=== PATIENT | male | born 2000 | race Caucasian/White ===

== ENCOUNTER 2019-02-21 03:29 | Observation (INO) ==
--- NOTE | 2019-02-21 03:43 | PROVIDER DOCUMENTATION ---
[id number] Abuse/Overdose - General Chief Complaint: Overdose Stated Complaint: OVERDOSE Time Seen by Provider: 02/21/19 03:42 Source: patient Allergies/Adverse Reactions: Allergies Allergy/AdvReac Type Severity Reaction Status Date / Time Penicillins AdvReac RASH Verified 02/21/19 03:40 Home Medications: Home Medication List Medication Instructions Recorded Confirmed Last Taken Type No Home Medications 05/02/15 02/21/19 Unknown History - History of Present Illness-Drug/Alcohol Nature of Presenting Problem: Patient is a 18 year old white male with history of substance abuse who arrives intoxicated by private car. Patient admits to drinking large amounts of alcohol tonight. Review of Systems - Adult - REVIEW OF SYSTEMS - ADULT Constitutional: denies: chills, fever Eyes: reports: no symptoms reported Ears, Nose, Mouth & Throat: reports: no symptoms reported Cardiovascular: reports: no symptoms reported Respiratory: reports: no symptoms reported Gastrointestinal: reports: see HPI Genitourinary: reports: no symptoms reported Musculoskeletal: reports: no symptoms reported Integumentary: reports: no symptoms reported Neurological: reports: see HPI Psychiatric: reports: see HPI, anxiety, alcohol/drug dependence Endocrine: reports: no symptoms reported Hematologic/Lymphatic: reports: no symptoms reported Allergic/Immunologic: reports: no symptoms reported All Other Systems: Reviewed and Negative Past History - Adult - PAST MEDICAL HISTORY-ADULT Review of Records: reports: Old Records Reviewed, Nursing Assessment Review, Medications Reviewed, Social history reviewed & non-contributory. Major Childhood Illnesses: reports: denies history Cardiovascular: reports: denies history Respiratory: reports: denies history Gastrointestinal: reports: other (stomach problems) Musculoskeletal: reports: denies history Psychiatric: reports: other (ADHD) Endocrine/Immune: reports: denies history - PRIOR SURGERIES/PROCEDURES Surgical/Procedure History: reports: none - IMMUNIZATION STATUS Childhood Immunizations: See Nurse Assessment Flu Vaccine: See Nurse Assessment - SOCIAL HISTORY Substance Use: alcohol Physical Exam-General - PHYSICAL EXAM-ADULT Initial Vital Signs Reviewed: Yes - CONSTITUTIONAL General Appearance: other (drowsy, answers questions appropriately, slurred speech) - EYES Eyes: PERRL/EOMI - HEAD, EARS, NOSE, MOUTH & THROAT HENMT: normocephalic/atraumatic, moist mucous membranes - NECK Neck: non-tender, full range of motion - RESPIRATORY Respiratory: lungs clear - CARDIOVASCULAR Cardiovascular: regular rate, rhythm - GASTROINTESTINAL (ABDOMEN) Abdominal Exam: normal bowel sounds, non tender, soft - LYMPHATIC Lymphatic: no adenopathy - MUSCULOSKELETAL Back Exam: normal inspection, no CVA tenderness Extremity: normal range of motion, non-tender - SKIN Integumentary: normal color, normal turgor - NEUROLOGIC Neurologic: grossly normal Progress - PLAN OF CARE/RESULTS Result Diagrams: 02/21/19 04:10 02/21/19 04:10 - REASSESSMENT Reassessment #1 Time Reassessed: 05:10 Status: worsening Reassessment Comment: becoming more somnolent, narcan bolus and narcan drip ordered - EKG 1 Time of EKG reading by physician:: 05:08 EKG Read and Signed by:: Mikhail Roth Rate: 52 Rhythm: sinus jennifer QRS: normal Comments: no STEMI - XRAY 1 XRAY Study: Chest XRAY Interpretation: NAD - CT/MRI 1 CT Study: Head CT Results: NAD - CONSULTS/PCP/HOSPITALIST Notification #1 *Consult/PCP/Hospitalist*: Dr. Tian, hospitalist Time Discussed: 05:00 Reason/Comments: call house sup to admit to ICU at [facility] Consult Disposition: Admit - CHANGE OF SHIFT REPORT (ED Provider) 1 Report Given and Care Transferred to:: Dr. Velásquez Time of Transfer: 07:00 Items Pending: Physician Consult/Arrival (arrange for transfer to [facility] ICU and manage overdose while awaiting transfer) Departure - Departure Date of Disposition Decision: 02/21/19 Time of Disposition Decision: 12:17 DIAGNOSIS: Opiate overdose Qualifiers: Encounter type: initial encounter Injury intent: undetermined intent Qualified Code(s): T40.604A - Poisoning by unspecified narcotics, undetermined, initial encounter Benzodiazepine overdose Qualifiers: Encounter type: initial encounter Injury intent: undetermined intent Qualified Code(s): T42.4X4A - Poisoning by benzodiazepines, undetermined, initial encounter Leukocytosis Qualifiers: Leukocytosis type: unspecified Qualified Code(s): D72.829 - Elevated white blood cell count, unspecified Disposition: ADMITTED INPATIENT 09 Certified Medical Emergency: Emergent Condition: Stable - Critical Care Note This patient required my direct & personal management of CC.: No Attestation - Physician/ LAUREEN Attestation Patient care was provided by Advanced Practice Provider:: No The physician spent face to face time with patient:: Yes Advanced Practice Provider documentation review:: Supervising physician onsite and consulted in the evaluation and care of this patient. The physician did have a face to face encounter with the patient.
[2019-02-21 04:20] LABS: BASO# 0.02 X1000 (0.0-0.2); BASO% 0.1 % (0.0-0.8); EOS# 0.02 X1000 (0.0-0.7); EOS% 0.1 % (0.0-10.0); HEMATOCRIT 45.4 % (42.0-52.0); HEMOGLOBIN 15.9 g/dL (14.0-18.0); IMM GRAN# 0.04 X1000 (0.0-0.04); IMM GRAN% 0.2 % (0.0-0.5); LYMPH# 2.72 X1000 (1.2-3.4); LYMPH% 16.5 % (20.5-51.1); MCH 28.9 PG (27-31); MCV 82.5 FL (81-99); MONO# 0.63 X1000 (0.11-0.59); MONO% 3.8 % (1.7-9.3); MPV 10.1 FL (7.4-10.4); NEUT% 79.3 % (42.2-75.2); PLT 239 X1000 (130-400); RDW 12.6 % (11.5-14.5); WBC 16.53 X1000 (4.8-10.8)
[2019-02-21] MEDS ORDERED: NS 1,000 ML IV ONE ×3 (04:22→06:27)
[2019-02-21 04:27] LABS: URINE SOURCE CLEAN CATCH
[2019-02-21 04:38] LABS: BILIRUBIN URINE NEGATIVE (NEGATIVE); BLOOD URINE NEGATIVE (NEGATIVE); COLOR YELLOW; GLUCOSE URINE NEGATIVE (NEGATIVE); KETONE URINE NEGATIVE (NEGATIVE); LEUKOCYTES URINE NEGATIVE (NEGATIVE); NITRITE URINE NEGATIVE (NEGATIVE); PROTEIN URINE 30 mg/dL (NEGATIVE); TURBIDITY URINE CLEAR (CLEAR); UROBILINOGEN URINE NORMAL (NORMAL)
[2019-02-21 04:39] LABS: UR EPITHELIAL CELLS <10 /HPF (<10); URINE BACTERIA NEGATIVE /HPF; URINE RBC <10 /HPF (<10); URINE WBC <10 /HPF (<10)
[2019-02-21 04:39] LABS: ACETAMINOPHEN < 1.2 ug/mL (10-30); AGAP 13; ALKALINE PHOSPHATASE 70 U/L (32-122); BUN 11 mg/dL (8-22); CALCIUM 9.5 mg/dL (8.8-10.2); CHLORIDE 102 mmol/L (98-107); COSMO 281; CREATININE 0.9 mg/dL (0.7-1.2); ESTIMATED GFR > 60; GLUCOSE 137 mg/dL (70-104); GOT 13 U/L (10-34); GPT 11 U/L (10-44); POTASSIUM 3.9 mmol/L (3.5-5.1); SALICYLATES < 3.00 mg/dL (3-10); SODIUM 140 mmol/L (136-145); TCO2 25 mmol/L (25-35); TOTAL PROTEIN 7.3 g/dL (6.3-8.3)
[2019-02-21 04:46] LABS: UR AMPHETAMINES QUAL NONE DETECTED (NONE DETECT); UR BARBITUATES QUAL NONE DETECTED (NONE DETECT); UR BENZODIAZEPIN QUAL PRESUMPTIVE POSITIVE (NONE DETECT); UR CANNABINOIDS QUAL PRESUMPTIVE POSITIVE (NONE DETECT); UR COCAINE QUAL NONE DETECTED (NONE DETECT); UR METHADONE QUAL NONE DETECTED (NONE DETECT); UR METHAMPHETAMINE QUAL NONE DETECTED (NONE DETECT); UR OPIATES QUAL PRESUMPTIVE POSITIVE (NONE DETECT); UR OXYCODONE QUAL NONE DETECTED (NONE DETECT); UR PCP QUAL NONE DETECTED (NONE DETECT); UR PROPOXYPHENE QUAL NONE DETECTED (NONE DETECT); UR TCA QUAL NONE DETECTED (NONE DETECT)
[2019-02-21] MEDS ORDERED: NARCAN IV ONE ×3 (05:09→06:56)
[2019-02-21] MEDS ORDERED: NARCAN 4 MG in NS 250 ML IV SCH ×2 (05:15→15:00)
[2019-02-21] MEDS ORDERED: NS 250 ML ONE (05:24)
[2019-02-21] MEDS ORDERED: NARCAN ONE (05:24)
[2019-02-21] MEDS ORDERED: ROCEPHIN 1 GM in NS 50 ML IV ONE (06:11)
[2019-02-21] MEDS ORDERED: NS 1,000 ML ONE (06:12)
[2019-02-21 06:19] LABS: URINE SOURCE CATH
--- NOTE | 2019-02-21 06:20 | EKG Report ---
Test Performed on : 02/21/2019 05:07:59 AM Test Reason : pain Blood Pressure : / mmHG Vent. Rate : 052 BPM Atrial Rate : 052 BPM P-R Int : 134 ms QRS Dur : 116 ms QT Int : 434 ms P-R-T Axes : 067 077 080 degrees QTc Int : 403 ms Sinus bradycardia. Otherwise normal ECG No previous ECGs available Unconfirmed Result
--- NOTE | 2019-02-21 06:53 | Diag Imaging Result Doc PS360 ---
EXAM: CHEST-PORTABLE 02/21/2019 HISTORY: leukocytosis TECHNIQUE: AP portable at 0552 COMMENT: The lungs are clear and the heart and pulmonary vascularity are within normal limits. The inspiration is less optimal than on 06/14/2015, however otherwise are has been no significant change. IMPRESSION: No acute disease. Electronically signed by Sonido Amaya 02/21/2019 6:50 AM
--- NOTE | 2019-02-21 07:04 | Diag Imaging Result Doc PS360 ---
EXAM: CT HEAD W/O CONTRAST 02/21/2019 HISTORY: altered mentation TECHNIQUE: This exam was performed using automated exposure control, adjustment of mA or kV according to patient size, and/or use of iterative reconstruction technique. COMMENT: There is no evidence of mass effect, bleed, or abnormal extra-axial fluid collection. Compared to 05/03/2015 there has been no significant change in the appearance of the brain. The calvarium is intact. There is a mucous retention cyst in the right maxillary sinus and opacification of the posterior ethmoid air cell on the right otherwise the visualized paranasal sinuses are clear. IMPRESSION: No evidence of acute intracranial disease. Electronically signed by Sonido Amaya 02/21/2019 7:02 AM
[2019-02-21 07:09] LABS: UR EPITHELIAL CELLS <10 /HPF (<10); URINE BACTERIA NEGATIVE /HPF; URINE RBC <10 /HPF (<10); URINE WBC <10 /HPF (<10)
[2019-02-21 07:12] LABS: BILIRUBIN URINE NEGATIVE (NEGATIVE); BLOOD URINE NEGATIVE (NEGATIVE); COLOR YELLOW; GLUCOSE URINE NEGATIVE (NEGATIVE); KETONE URINE NEGATIVE (NEGATIVE); LEUKOCYTES URINE NEGATIVE (NEGATIVE); NITRITE URINE NEGATIVE (NEGATIVE); PROTEIN URINE TRACE mg/dL (NEGATIVE); SP GRAVITY URINE 1.024; TURBIDITY URINE TURBID (CLEAR); UROBILINOGEN URINE NORMAL (NORMAL)
[2019-02-21 07:55] LABS: ACETAMINOPHEN < 1.2 ug/mL (10-30); SALICYLATES < 3.00 mg/dL (3-10)
[2019-02-21 07:57] LABS: BE -3.1 mmoll (-3.0-3.0); BLOOD TYPE ARTERIAL; HCO3-(ACT) 22.5 mmoll (20.0-26.0); METHB 1.7 % (0.0-1.5); O2(CT) 11.4 mL/dL (15.0-23.0); O2HB 92.6 % (95.0-99.0); PCO2(98.6) 43 mmHg (35-45); PO2(98.6) 92 mmHg (60-100); SAMPLE BLOOD; SAO2 100.8 % (95.0-100.0); THB 8.6 g/dL (11.5-17.4); pH(98.6) 7.33 (7.35-7.45)
[2019-02-21 08:00] LABS: ALLEN TEST YES; MODALITY ROOM AIR
[2019-02-21 08:01] LABS: INR 0.94
[2019-02-21 08:02] LABS: PTT 28.6 Seconds (22.3-41.8)
--- NOTE | 2019-02-21 08:12 | Diag Imaging Result Doc PS360 ---
EXAM: KUB ABDOMEN 02/21/2019 HISTORY: possible ingestion of drugs in baggie scrap stripper hand TECHNIQUE: KUB COMMENT: The bowel gas pattern is nonspecific. There are no definite foreign bodies demonstrated. There is no evidence of organomegaly or mass. IMPRESSION: Nonspecific abdomen. Electronically signed by Sonido Amaya 02/21/2019 8:10 AM
--- NOTE | 2019-02-21 09:24 | HISTORY AND PHYSICAL ---
PRIMARY CARE PHYSICIAN: None. CHIEF COMPLAINT: Overdose after he was stopped by the police and swallowed an unknown amount of medications of an unknown type, and was brought to the emergency room by private car. HISTORY OF PRESENTING ILLNESS: This is a 18-year-old, male, who presents to [facility] ER via private car. He initially stated that he had been drinking large amounts of alcohol, but his serum alcohol level showed none detected. It is noted that apparently, he was pulled over with a friend by the police, and he swallowed an unknown amount of drugs that he had in the car. His urine drug screen was positive for opiates, benzodiazepines, and cannabinoids. He was noted to become very somnolent after arriving. His core temp dropped to 96.2 about an hour and a half after he left, when he was placed on a Annmarie Hugger. Currently, his temperature is up to 96.8. His chest x-ray showed no acute disease. Head CT showed no evidence of acute intracranial disease, and his abdomen x-ray showed a nonspecific abdomen. He was started on a Narcan drip, is still lying in the bed, snoring at this time, will arouse to sternal rub, but he will be admitted to the intensive care unit at the [facility] for further evaluation and treatment. PAST MEDICAL HISTORY: GERD. PAST SURGICAL HISTORY: None. FAMILY HISTORY: Reviewed and noncontributory. SOCIAL HISTORY: He lives with family. Smokes less than a half a pack of cigarettes a day, and has done so for the last several years. Drinks alcohol occasionally, and took an unknown amount of medications of illicit drugs. Again, we do not know exactly what all he has taken. When he first arrived to the emergency room, he stated that he had taken fentanyl, Xanax, Roxicodone, and smoked marijuana and had been drinking alcohol. ALLERGIES: Penicillin. HOME MEDICATIONS: He does not take any medications on a routine basis. IMAGING AND LABORATORY DATA: Laboratory data showed a white blood cell count of 16.53, hemoglobin 15.9, hematocrit 45.4, platelets 239,000. PT and INR of 13 and 0.94. ABG with a pH of 7.33, pCO2 of 43, PO2 of 92, bicarb 22.5, and this was on room air. Sodium 140, potassium 3.9, chloride 102, CO2 of 25, BUN of 11, creatinine 0.9, glucose 137. Magnesium of 2. Cardiac enzyme was negative. Plasma lactate of 0.9. Urinalysis was negative. Urine drug screen was presumptive positive for opiates, benzodiazepines, and cannabinoids. Serum alcohol level showed none detected. Salicylate level x2 sets was less than 3, and acetaminophen x2 sets was less than 1.2. Chest x-ray showed no acute disease. Head CT showed no evidence of acute intracranial disease. An abdomen x-ray showed a nonspecific abdomen. REVIEW OF SYSTEMS: Unable to obtain from patient. PHYSICAL EXAMINATION: VITAL SIGNS: On arrival, he had a temperature of 97.9 degrees, pulse 82, respirations 18, blood pressure 113/76, saturating 97% on room air. About an hour and a half after he arrived, his core temp dropped to 96.2. He was placed on the Annmarie Hugger, which he currently remains on, and his temperature is still 96.8 right now. HEENT: Normocephalic, atraumatic. Normal ENT inspection. Oropharynx and nares are clear. Eyes: Pupils appear equal, round, and reactive to light and accommodation. Extraocular movements are intact. NECK: Normal inspection. Normal range of motion. LUNGS: Clear to auscultation bilaterally with equal lung expansion and chest wall movement. HEART: Regular rate and rhythm. No murmurs, rubs, or gallops. ABDOMEN: Soft, nontender, nondistended. Bowel sounds are present x4 quadrants. MUSCULOSKELETAL: Unable to assess strength at this time. NEUROLOGICAL: Unable to complete neurological exam due to his lethargy, but appears to be intact. ASSESSMENT: 1. Drug overdose, unintentional for self-harm. 2. Leukocytosis, most likely reactive. 3. Gastroesophageal reflux disease. PLAN: He will be admitted to the intensive care unit at [facility]. He is n.p.o. at this time. Remains on the Annmarie Hugger. Neurologic checks every 1 hour. He is on a Narcan drip. Blood cultures x2 are pending. Will recheck a CBC and BMP in the a.m. Further orders after seen by attending. Dictated by CHRISTIANA Ayon for Rhett Sorensen MD cc: CHRISTIANA Ayon MD
--- NOTE | 2019-02-21 11:40 | EKG Report ---
Test Performed on : 02/21/2019 11:26:06 AM Test Reason : OD Blood Pressure : / mmHG Vent. Rate : 054 BPM Atrial Rate : 054 BPM P-R Int : 140 ms QRS Dur : 106 ms QT Int : 416 ms P-R-T Axes : 079 080 085 degrees QTc Int : 394 ms Sinus bradycardia. with sinus arrhythmia. Otherwise normal ECG When compared with ECG of 21-FEB-2019 05:07, (Unconfirmed) No significant change was found Unconfirmed Result
[2019-02-21 11:53] LABS: ACETAMINOPHEN < 1.2 ug/mL (10-30); SALICYLATES < 3.00 mg/dL (3-10)
--- NOTE | 2019-02-21 13:34 | HISTORY AND PHYSICAL ---
ADDENDUM: SUBJECTIVE: The patient has no major complaints but he is kind of minimally responsive. This is a 18-year-old. No medical problems. I guess polysubstance abuser. He had significant amount of drugs on board. Reportedly, opiates, benzodiazepines, cannabinoids, fentanyl patch. He was pulled over by the police and he apparently ingested the entire bag of drugs. We are not entirely sure how much he took. Patient was nearly obtunded. He was placed on Narcan. He is more arousable now. The only thing in his system was opiates, benzodiazepines, and cannabinoids. In any case, he was found okay. Looking here, fentanyl 12 bars, alcohol, marijuana, [place] 10, Roxicodone 30, and Xanax, but we do not know exactly an amount. He is going to be transferred to [facility] for ICU management, Narcan. He is a bit on the bradycardic side so we will continue to monitor that. He may need atropine and dopamine upon reassessment, so we will continue to follow. This is a 32 minute critical care time for drug overdose with narcotics, on intravenous naloxone infusion. Azsy-es-bagl encounter note with Maggie Malin. cc: Rhett Sorensen MD
[2019-02-21] MEDS ORDERED: ATROPINE IV PRN ×2 (13:46→16:04)
[2019-02-21] MEDS: SODIUM CHLORIDE 0.9% INJ SCH (14:40)
[2019-02-21] MEDS: NS 1,000 ML IV SCH ×2 (14:40→23:00)
[2019-02-21] MEDS: PROTONIX IV SCH (14:40)
[2019-02-21] MEDS: NICODERM PATCH TD SCH (15:59)
[2019-02-21] MEDS ORDERED: BLISTEX MEDICATED BERRY LIP BALM TOP PRN (19:43)
[2019-02-22] MEDS ORDERED: LOVENOX SUBQ SCH (06:00)
[2019-02-22 06:24] LABS: BASO# 0.01 X1000 (0.0-0.2); BASO% 0.1 % (0.0-0.8); EOS# 0.06 X1000 (0.0-0.7); EOS% 0.7 % (0.0-10.0); HEMATOCRIT 42.8 % (42.0-52.0); HEMOGLOBIN 14.9 g/dL (14.0-18.0); LYMPH# 3.22 X1000 (1.2-3.4); MCH 29.2 PG (27-31); MCHC 34.8 g/dL (33-37); MCV 83.8 FL (81-99); MONO# 0.58 X1000 (0.11-0.59); MONO% 6.8 % (1.7-9.3); MPV 10.5 FL (7.4-10.4); NEUT% 54.4 % (42.2-75.2); PLT 208 X1000 (130-400); RBC 5.11 XMIL (4.7-6.1); RDW 12.5 % (11.5-14.5); WBC 8.47 X1000 (4.8-10.8)
[2019-02-22 07:02] LABS: AGAP 11; ALB/GLOB RATIO 2.4; ALBUMIN 4.1 g/dL (3.5-5.0); ALKALINE PHOSPHATASE 59 U/L (32-122); BUN 6 mg/dL (8-22); CALCIUM 8.5 mg/dL (8.8-10.2); CHLORIDE 108 mmol/L (98-107); COSMO 279; DIRECT BILIRUBIN < 0.10 mg/dL (0.00-0.20); ESTIMATED GFR > 60; GLUCOSE 71 mg/dL (70-104); GOT 13 U/L (10-34); GPT 9 U/L (10-44); POTASSIUM 3.6 mmol/L (3.5-5.1); SODIUM 142 mmol/L (136-145); TCO2 23 mmol/L (25-35); TOTAL BILIRUBIN 0.69 mg/dL (0.20-1.00); TOTAL PROTEIN 5.8 g/dL (6.3-8.3)
[2019-02-22] MEDS: NICODERM PATCH TD SCH (08:29)
[2019-02-22] MEDS: NS 1,000 ML IV SCH (09:07)
--- NOTE | 2019-02-22 11:33 | PROGRESS NOTE ---
DATE: 02/22/2019 SUBJECTIVE: I have seen and examined Mr. Barry today in the Critical Care Unit. His mother was at the bedside at the time of the encounter. Mr. Barry refers that he was in nursing home for about 4 months, recently just got sent home about 2 weeks ago. He has been trying to stay on the right path. However, yesterday he was having some good times with friends, and they were pulled over by the police, and he took an undetermined amount of Xanax with fentanyl and some pain pills between 5 and 7.5. He currently has been on Narcan drip. His mentation has significantly improved. He refers he wants something to eat, and he is requesting when he can be discharged. OBJECTIVE: Vital signs: Blood pressure is 115/60, pulse of 60, respirations 20, temperature is 98.8 degrees. General: Mr. Barry, a 18-year-old gentleman. He is in bed, no distress. HEENT: Mucosa is pink and moist. Anicteric. Acyanotic. Neck: Supple. Chest: Good air entry bilateral. There were no crepitations, no rhonchi. Cardiovascular: Regular rate and rhythm. GI/Abdomen: Soft, nontender. Bowel sounds present. Extremities: No pedal edema. APPEALS ANALYST: Patient is awake, alert and oriented. LABORATORY DATA: Has been reviewed. CBC is completely normal. Chemistry is also within normal range. The patient's UDS was positive for opioids, benzodiazepines and cannabinoids. CULTURES: Blood cultures are still pending. IMAGING STUDIES: A chest x-ray initially showed no acute disease. A CT scan of the head showed no evidence of acute intracranial pathology. A KUB shows a nonspecific abdomen. ASSESSMENT: 1. Altered mental status on presentation secondary to drug-induced encephalopathy. 2. Polysubstance recreational drug abuse. 3. Drug overdose. 4. Remote history of depression according to the mother. We will request [facility] to evaluate him. PLAN: In general, I think Mr. Barry is doing well, clinically stable, hemodynamically okay. We are going to start him on regular diet, get him to walk around and will get [facility] to evaluate him. Potentially, he is a discharge today if it is okay with [facility] evaluation. cc: Sujit Del Toro MD
[2019-02-22 12:21] VITALS: BP 106/59
[2019-02-22] MEDS: PROTONIX IV SCH (14:19)
[2019-02-22] MEDS: SODIUM CHLORIDE 0.9% INJ SCH (14:19)
--- NOTE | 2019-02-23 20:56 | DISCHARGE SUMMARY ---
ADMISSION DATE: 02/21/2019 DISCHARGE DATE: 02/22/2019 DISPOSITION: Home under mother's care. CONSULTATION DURING THIS ADMISSION: Yulissa Farley was consulted. INVASIVE PROCEDURES DONE DURING THIS ADMISSION: None. IMAGING STUDIES OF SIGNIFICANCE: 1. Chest x-ray showed no acute disease. 2. CT scan of the head showed no evidence of acute intracranial disease. 3. KUB showed nonspecific abdomen. ADMISSION DIAGNOSES: 1. Drug overdose. 2. Leukocytosis. 3. Gastroesophageal reflux disease. DIAGNOSES AT THE TIME OF DISCHARGE: 1. Altered mental status on presentation, secondary to drug-induced encephalopathy. 2. Polysubstance recreational drug use and abuse, with overdose on admission. 3. Remote history of depression. 4. Reactive leukocytosis. DISCHARGE MEDICATIONS: None. PRESENTING COMPLAINT: Overdose. HISTORY OF PRESENTING COMPLAINT: Mr. Barry is a 18-year-old male who has a past medical history of GERD. Apparently, he [facility] in [facility], just got taken out 2 weeks prior to admission. Apparently, was in the company of some friends and was told by police they had an unknown amount of Xanax, fentanyl, and [place]. Because he did not want them to see him with the pills, he swallowed all of them at the same time. Was brought to the emergency room where he was found obtunded. He was given Narcan, which improved slightly. He was subsequently admitted to the medical ICU for close monitoring and medical management. HOSPITAL COURSE: Mr. Barry was admitted to the ICU. Was adequately fluid resuscitated and was started on Narcan. Salicylates as well as acetaminophen levels were monitored throughout the hospital stay, but they were all undetectable. He clinically got better. His mentation completely resolved. Today, the mother was at the bedside at the time of my encounter. Please refer to the progress notes for today. He was very adamant he wanted to be discharged. The mother, however, did say the patient has had depression for some time and wanted [facility] to evaluate him, which was successfully done. He did not qualify to go inpatient and he declined, and he denied any suicidal or homicidal ideation. Mr. Barry refers that he just did not want to be caught with the drugs; that is why he swallowed all of them, but he did not have any intentions to hurt himself. At any point, he has been observed for more than 48 hours. He is clinically stable. Vitals are stable. We think he is okay for discharge. He is being discharged in stable condition under the care of his mother. All the discharge instructions were discussed with him and he voiced understanding. TIME SPENT FOR DISCHARGE: 32 minutes. cc: Sujit Del Toro MD
--- NOTE | 2019-03-06 12:15 | ED EKG INTERP ---
This chart was entered by Oswaldo Fajardo Scribe, acting as scribe for Tio Velásquez MD. EKG Interpretation - EKG Time of EKG reading by physician:: 11:26 EKG Read and Signed by:: Tio Velásquez EKG Interpretation (*Must complete 3 of following elements*): Normal Rate: 54 Rhythm: sinus bradycardia w/ sinus arrhythmia [place]: normal QRS: normal ND Interval: normal ST Wave: normal Attestation - Physician/ LAUREEN Attestation Patient care was provided by Advanced Practice Provider:: No The physician spent face to face time with patient:: Yes Advanced Practice Provider documentation review:: Supervising physician onsite and consulted in the evaluation and care of this patient. The physician did have a face to face encounter with the patient. This chart was documented by the indicated scribe, (Oswlado Fajardo, [place]) and accurately reflects the services I performed and decisions made by me, Tio Velásquez MD, as attested by the provider's signature.
== END 2019-02-22 14:40 | disposition home or self-care (01) | DRG 917 ==
LOC: P.ED 03:29 → SUATTDRO 03:30 → INTOOBSV 03:30 → ICU 11:48
PROVIDERS: ATTEND Internal Medicine